=== PATIENT | female | born 1990 | race Caucasian/White ===

== ENCOUNTER 2018-10-02 18:00 | Emergency (ER) | payer OTHER ==
[~2018-10-02] VITALS: Ht 177.8 cm; Wt 81.6 kg
--- NOTE | 2018-10-02 18:30 | NUR ---
ED Nurse Note: patient walked into ED c/o vomiting coffee ground emesis and birght red stool patient reports having bad GERD for 1 month. Patient repors that she has not seen her PMD regarding this issue Patient states increasing weakness.
--- NOTE | 2018-10-02 18:47 | Emergency Room Report ---
History of Present Illness General Chief Complaint: Gastrointestinal Bleed Source: Patient Present Illness HPI This is a 28-year-old female has not been a doctor recently and complains of some intermittent blood per rectum and blood tinge vomiting for the last several weeks. No exacerbating or relieving factor. She denies any abdominal pain. No other associated symptoms. She denies any shortness of breath. Allergies: Coded Allergies: No Known Allergies (Unverified , 10/02/18) Patient History Past Surgical History: none Pertinent Family History: none Last Menstrual Period: 1 week Now: No Nursing Documentation-PMH Past Medical History: No History, Except For Hx Gastrointestinal Problems: Yes - GERD Review of Systems All Other Systems: negative except mentioned in HPI Physical Exam Vital Signs Date Time Temp Pulse Resp B/P (MAP) Pulse Ox O2 Delivery O2 Flow Rate FiO2 10/02/18 18:11 98.4 86 18 143/84 98 Room Air General Appearance: well appearing, no apparent distress Head: normocephalic, atraumatic ENT: hearing grossly normal, normal voice Neck: full range of motion, supple Respiratory: no respiratory distress, speaking full sentences Gastrointestinal: normal inspection, soft, no mass Musculoskeletal: normal inspection, no calf tenderness Neurologic: alert, normal gait Medical Decision Making ER Course Patient has now decided that she would like to leave AGAINST MEDICAL ADVICE. She states that the wait was too long. I told the patient that I will do the best I can to get the labs expeditiously. She states that is not good enough. The patient the risk of leaving AGAINST MEDICAL ADVICE, including and/or severe disability. The patient does understand this fully. She has completely decision-making capacity. Last Vital Signs Date Time Temp Pulse Resp B/P (MAP) Pulse Ox O2 Delivery O2 Flow Rate FiO2 10/02/18 18:43 86 18 Room Air 10/02/18 18:11 98.4 143/84 98 Disposition: AGAINST MEDICAL ADVICE JAQUELIN PARKER Oct 02, 2018 18:47
--- NOTE | 2018-10-02 19:04 | NUR ---
ED Nurse Note: patient wishes to sign AMA RN explained that Dr. Burt ordered blood work to check her blood count, and the risk of signing AMA, but patient insisted to leave. patient states that she does not feel very urgent now She stated "Can I come back like in an hour?" and "Can I let you draw blood and leave? I will get result later" "How much is it going to be?" RN asked switchboard operator receptionist to come and talk to the patient regarding the financial part. After talking to the switchboard operator receptionist, patient signed AMA.
--- NOTE | 2018-10-02 19:05 | NUR ---
AMA: SEE AMA FORM.
[2018-10-02 19:36] VITALS: BP 143/84
[2018-10-02 19:37] VITALS: BP 143/84
== END 2018-10-02 19:37 | disposition left against medical advice (07) ==
LOC: EMR 18:45
DX: K92.2 Gastrointestinal hemorrhage, unspecified (principal); K21.9 Gastro-esophageal reflux disease without esophagitis; Z53.21 Procedure and treatment not carried out due to patient leaving prior to being seen by health care provider
CPT/HCPCS: 99282